=== PATIENT | female | born 1950 | race Two or more races ===

== ENCOUNTER → 2018-09-30 | Outpatient (CLI) | payer OTHER, MEDICAID ==
[~2018-09-30] MED LIST: ALBUTEROL SULF 2.5 MG/0.5ML(0.5%) NEB SOLN ONE
== END | disposition home or self-care (01) ==
LOC: RT 08:13
PROVIDERS: ATTEND Internal Medicine Pulmonary Disease
DX: J44.9 Chronic obstructive pulmonary disease, unspecified (principal)
CPT/HCPCS: 94060; J7611